=== PATIENT | male | born 1990 ===

== ENCOUNTER 2021-05-31 14:05 | Outpatient (REF) | payer OTHER, SELFPAY ==
--- NOTE | 2021-06-08 12:58 | MHC.AU.ANO ---
Adult Audiological Evaluation Date of Visit: 05/31/21 Pressure Washer Used: Not Applicable Reason for Appointment: Azam was referred for an audiologic evaluation due to bilateral tinnitus. He reports he has experienced an intermittent and very brief (no longer than 10 seconds) ringing sound approximately 3-4 times a week for the past 10 years. Azam has had significant history of noise exposure related to motorcycles, loud music, and power tools. Since he noticed the tinnitus, he has worn hearing protection consistently. Does patient feel they have a hearing loss?: No Has hearing been tested previously?: No Hearing Handicap Inventory: HHIE SCORE: 0 Based on HHIE score, patient has: No perceived hearing handicap Ear History: Family History of Hearing Loss?: Yes: Mother & maternal uncle have left ear hearing loss Tinnitus/Ringing/Noises in Ears: Both Ears Ear used on the phone: Both Ears History: No Medical History: Medical History: Unremarkable Medical History Medication List: None reported Otoscopy: Right Ear: Unremarkable Left Ear: Unremarkable Tympanometry: Tympanometry performed due to: To assess integrity of the middle ear system Right Ear: Normal Middle Ear System (Type A) Left Ear: Normal Middle Ear System (Type A) Otoacoustic Emissions Frequency Range Used: 1.6-8 kHz Right Ear Results: Present Emissions Analysis: Present emissions suggest normal cochlear function Rules out peripheral hearing loss greater than a mild degree Left Ear Results: Present Emissions Analysis: Present emissions suggest normal cochlear function Rules out peripheral hearing loss greater than a mild degree Hearing Evaluation: Transducer(s) Used: Insert Earphones Method: Conventional Audiometry Stimuli Used: Pure Tones Right Ear: Description of Hearing: Normal hearing thresholds 250-8000 Hz Left Ear: Description of Hearing: Normal hearing thresholds 250-8000 Hz Speech Recognition Threshold (SRT): Method Used: Monitored Live Voice Stimuli Used: Spondee Words Right Ear: 0 dB HL Left Ear: 0 dB HL Word Discrimination: Method: Recorded Lists Word Lists Used: NU-6 Right Ear: 100% at 50 dB HL Left Ear: 96% at 50 dB HL Interpretation of Results: Results indicate normal peripheral hearing systems for both ears. When ringing occurs suddenly and last for less than one minute, it is known as a Spontaneous Otoacoustic Emission and commonly occurs in individuals with normal inner ear function. Discussed the many causes of tinnitus. Recommendations: No further audiological action is indicated at this time. Hearing protection should be used when around loud noise. Advise an audiologic re-evaluation if a change in hearing or tinnitus is suspected. Diagnosis: Primary Diagnosis: H93.13 Tinnitus, Bilateral Services Performed: Pure Tone- Air (CPT 38274) Speech Audiometry Threshold, with Speech Recognition (CPT 46660) Diagnostic Otoacoustic Emissions (CPT 64265, 26+TC) Tympanometry (CPT 95514) Signature: Provider: Maranda Villafuerte, VANITA-A
== END 2021-05-31 14:06 | disposition home or self-care (01) ==
LOC: HO.SH 14:05
PROVIDERS: Visit Provider Nurse Practitioner Family
DX: Z01.118 Encounter for examination of ears and hearing with other abnormal findings (principal); H93.13 Tinnitus, bilateral
CPT/HCPCS: 92552; 92556; 92567; 92588